=== PATIENT | male | born 1960 | race Caucasian/White ===

== ENCOUNTER → 2016-07-08 | Outpatient (CLI) | payer OTHER ==
[~2016-07-08] MED LIST: IBUP200T52 PO
--- NOTE | 2016-07-08 15:43 | DIAGNOSTIC IMAGING REPORT ---
RIGHT SHOULDER MRI HISTORY: Right shoulder pain. 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 COMPARISON STUDY: None. FINDINGS: AC joint: Moderate AC joint arthropathy demonstrated by marginal osteophytes, subchondral cystic change, joint space narrowing, joint fluid. Rotator cuff: The subscapularis and teres minor tendons are intact. There are small focal full-thickness tears at the distal supraspinatus tendon. No associated retraction. High-grade partial tear along the undersurface of the infraspinatus tendon with an interstitial component of the tear extending to the musculotendinous junction. Mild fatty atrophy of the supraspinatus muscle. Labrum: Diffuse abnormal configuration and signal within the labrum consistent with a circumferential tear. Biceps tendon: Focus of increased signal within the long head of the biceps tendon consistent with a tendinopathy. Bones: Mild subchondral edema and cystic change along the lateral humeral head. This is likely chronic. No fracture or dislocation. Cartilage: Mild cartilage thinning at the humeral head. Miscellaneous: No significant joint effusion. Trace fluid within the subacromial/subdeltoid bursa. IMPRESSION: 1. Small focal full-thickness tears at the distal supraspinatus tendon. No associated retraction. 2. High-grade partial tear involving the majority of the articular surface of the infraspinatus tendon with an interstitial component of the tear that extends to the musculotendinous junction. 3. Diffuse abnormal configuration and signal within the labrum consistent with a circumferential tear. 4. Mild biceps tendinopathy. 5. Additional chronic findings as described above. Electronically signed by: Anish Dawson M.D. 07/08/2016 3:41 PM Dictated Date/Time: 07/08/2016 3:33 PM
== END | disposition home or self-care (01) ==
LOC: C.MRI 14:06
PROVIDERS: ATTEND Internal Medicine
DX: M75.100 Unspecified rotator cuff tear or rupture of unspecified shoulder, not specified as traumatic (principal)

== ENCOUNTER → 2016-07-09 | Outpatient (CLI) | payer OTHER ==
[2016-07-09 11:21] LABS: ALT/SGPT 30 U/L (12-78); AST/SGOT 24 U/L (15-37); BLOOD UREA NITROGEN 30 mg/dl (7-18); BUN/CREATININE RATIO 24.8 (10-20); CALCIUM 8.7 mg/dl (8.5-10.1); CARBON DIOXIDE 26 mmol/L (21-32); CHLORIDE 106 mmol/L (98-107); CHOLESTEROL 197 mg/dl (0-200); GLUCOSE 86 mg/dl (70-99); POTASSIUM 3.9 mmol/L (3.5-5.1); SODIUM 142 mmol/L (136-145)
[2016-07-09 11:26] LABS: CHOLESTEROL/HDL RATIO 3.3; HDL CHOLESTEROL 60 mg/dl; LDL CHOLESTEROL CALCULATED 124 mg/dl; PROSTATE SPECIFIC ANTIGEN 0.791 ng/ml (0.000-4.000); TRIGLYCERIDES 63 mg/dl (0-150); VERY LOW DENSITY LIPOPROT CALC 13 mg/dl
== END | disposition home or self-care (01) ==
LOC: C.LABBC 07:45
PROVIDERS: ATTEND Internal Medicine
DX: Z12.5 Encounter for screening for malignant neoplasm of prostate (principal); Z13.220 Encounter for screening for lipoid disorders; Z13.1 Encounter for screening for diabetes mellitus; M75.100 Unspecified rotator cuff tear or rupture of unspecified shoulder, not specified as traumatic

== ENCOUNTER → 2017-06-09 | Outpatient (CLI) | payer OTHER ==
[~2017-06-09] MED LIST changes: +MELO15TA4 PO
[2017-06-09 13:09] LABS: BASO % 0.4 %; BASO ABS # 0.02 K/uL (0-0.2); EOS % 3.4 %; EOS ABS # 0.17 K/uL (0-0.5); HEMATOCRIT 44.4 % (42-52); HEMOGLOBIN 15.1 g/dL (14.0-18.0); IG# 0.02 K/uL (0.00-0.02); LYMPH % 30.4 %; LYMPH ABS # 1.53 K/uL (1.2-3.4); MEAN CORPUSCULAR HEMOGLOBIN 30.3 pg (25-34); MEAN PLATELET VOLUME 10.2 fL (7.4-10.4); MONO % 8.5 %; MONO ABS # 0.43 K/uL (0.11-0.59); NEUT % 56.9 %; NEUT ABS # 2.87 K/uL (1.4-6.5); PLATELET COUNT 199 K/uL (130-400); RED CELL DISTRIBUTION WIDTH CV 12.4 % (11.5-14.5); RED CELL DISTRIBUTION WIDTH SD 39.3 fL (36.4-46.3); WHITE BLOOD COUNT 5.04 K/uL (4.8-10.8)
[2017-06-09 13:36] LABS: BLOOD UREA NITROGEN 23 mg/dl (7-18); CALCIUM 9.4 mg/dl (8.5-10.1); CARBON DIOXIDE 28 mmol/L (21-32); CREATININE 0.98 mg/dl (0.60-1.40); GLUCOSE 96 mg/dl (70-99); SODIUM 138 mmol/L (136-145)
== END | disposition home or self-care (01) ==
LOC: C.CPL 12:38
PROVIDERS: ATTEND Orthopaedic Surgery
DX: M75.81 Other shoulder lesions, right shoulder (principal)

== ENCOUNTER → 2017-06-26 | Day surgery (SDC) | payer OTHER ==
[2017-06-10 09:56] VITALS: Ht 189.2 cm; Wt 77.3 kg
[~2017-06-26] VITALS: Ht 189.2 cm; Wt 77.3 kg
[~2017-06-26] MED LIST changes: +ATROPINE SULFATE 0.1 MG/ML 5ML SYR IV PRN; +BUPIVACAINE/EPINEPHRINE 0.25% 1:200,000 30 ML VIAL ONE; +CEFAZOLIN 2000MG IV PUSH 10 ML IV SCH; +DEXAMETHASONE SOD INJ 4 MG/ML VIAL ONE; +EpHEDrine SULFATE INJ 50 MG/ML AMP IV PRN; +EpINEphrine INJ 1MG/ML AMP 1 MG/ML AMP ONE; +FENTANYL CITRATE INJ 50 MCG/1 ML 2 ML VIAL IV PRN; +FENTANYL CITRATE INJ 50 MCG/1 ML 2 ML VIAL ONE; +KETO10TA PO; +KETOROLAC TROMETHAMINE 30 MG/ML VIAL IV. PRN; +LACTATED RINGER'S 1000ML 1,000 ML IV SCH; +LIDOCAINE HCL 2% 2 ML VIAL (20MG/ML) ONE; +MIDAZOLAM HCL 1 MG/ML 2ML VIAL ONE; +ONDANSETRON INJ 2 MG/ML 2 ML VIAL IV PRN; +ONDANSETRON INJ 2 MG/ML 2 ML VIAL ONE; +OXYC-57 PO; +OXYCODONE/ACETAMINOPHEN 5-325 TAB PO PRN; +PROPOFOL IV EMULSION 10 MG/ML 20 ML VIAL IV ONE; +ROPIVACAINE 0.5% 5 MG/ML 30 ML VIAL ONE; +SODIUM CHLORIDE 0.9% 1000ML 1,000 ML IV SCH
--- NOTE | 2017-06-26 11:11 | History & Physical Bridge - [place] ---
H&P Re-Evaluation Bridge Note: I have examined the patient, reviewed the History & Physical and in the interval since the performance of the History & Physical I have noted the following changes of clinical significance: No changes noted
--- NOTE | 2017-06-26 13:42 | [facility] Post Operative Brief Note ---
Immediate Operative Summary Operative Date Jun 26, 2017. Pre-Operative Diagnosis Right Shoulder Rotator Cuff Tear, Biceps Tendonitis Post-Operative Diagnosis Same Procedure(s) Performed Right Shoulder Arthroscopy, Medium Rotator Cuff Tear, Acromioplasty Surgeon Dr. Herrmann Manager Merchandising Surgeon(s) Karolina Camacho PA-C Estimated Blood Loss 5 ml Findings Consistent with Post-Op Diagnosis Specimens None Drains None Anesthesia Type General Regional Complication(s) none Disposition Disposition: Recovery Room / PACU
--- NOTE | 2017-06-26 13:56 | Discharge Instructions-SurgCtr ---
Discharge Instructions Date of Service Jun 26, 2017. Visit Reason for Visit: Right Shoulder Rotator Cuff Tendon Inflammation Discharge Discharge Diagnosis / Problem: SAME ABOVE Discharge Goals Goal(s): Decrease discomfort, Improve function Medications Stopped Medications Name(s): Advil and meloxicam stopped 06-18-17 Restart Stopped Medication(s): MAY RESTART ONCE YOU ARE COMPLETED WITH TORADOL TAKE TORADOL EVERY 8 HOURS UNTIL FINISHED Activity Recommendations Activity Limitations: as noted below Lifting Limitations: until after follow-up appointment Exercise/Sports Limitations: until after follow-up appointment Shower/Bathe: tomorrow Anesthesia . Post Anesthesia Instructions: If you have had General Anesthesia or IV Sedation: * Do not drive today. * Resume driving when surgeon permits. * Do not make important decisions or sign legal documents today. * Call surgeon for: 1. Temperature elevations greater than 101 degrees F. 2. Uncontrollable pain. 3. Excessive bleeding. 4. Persistent nausea and vomiting. 5. Medication intolerance (nausea, vomiting or rash). * For nausea and vomiting use only clear liquids such as: tea, soda, bouillon until nausea subsides, then gradually increase diet as tolerated. * If you have any concerns or questions, call your surgeon's office. If physician is unavailable and it is an emergency, call 911 or go to the nearest emergency room. . Instructions / Follow-Up Instructions / Follow-Up MEDICATIONS: * Resume previous medications unless instructed otherwise by your surgeon. * Always take pain medication on a full stomach or with food to avoid upset stomach. * Do not drink alcohol or drive while taking narcotics. * Ibuprofen or Tylenol may be taken if narcotic not needed. SPECIAL CARE INSTRUCTIONS: __ None _X_ Keep extremity elevated and iced x 48 hours; apply ice 20-30 minutes 8-10 times/day. May remove at night. __ Sling __24 hrs/day __ Remove at night _X_ Shoulder Immobilizer (MAY REMOVE AFTER 48 HOURS ONLY TO SHOWER AND FOR THERAPY) _X_ 24 hrs/day __ Remove at night _X_ Dressing __ Maintain until seen in office, may shower with plastic over site _X_ Remove dressings in 24-48 hours and then may shower _X_ Cover incisions with band-aids after showering __ Do not remove steri-strips Call physician if chills or temperature rises above 102 degrees or pain unrelieved by prescribed pain medications at . . Diet Recommendations Home Diet: no limitations Fluid Restriction: None Procedures Procedures Performed: Right Shoulder Arthroscopy, Medium Rotator Cuff Tear, Acromioplasty Pending Studies Studies pending at discharge: no Work Instructions Return To Work: after follow-up Lifting Limitations: NO LIFTING WITH RIGHT ARM Medical Emergencies . Who to Call and When: Medical Emergencies: If at any time you feel your situation is an emergency, please call 911 immediately. . Non-Emergent Contact Non-Emergency issues call your: Primary Care Provider Call Non-Emergent contact if: you have a fever, temperature is above 101.5 . . "Provider Documentation" section prepared by Connor Camacho. .
[2017-06-26 14:53] VITALS: TEMP 36.5
--- NOTE | 2017-06-26 15:06 | Anesthesia Progress Nt - [facility] ---
Anesthesia Post Op Note Date & Time Jun 26, 2017 at 15:06 Vital Signs Pain Intensity: 3 Vital Signs Past 12 Hours Date Time Temp Pulse Resp B/P (MAP) Pulse Ox O2 Delivery O2 Flow Rate FiO2 06/26/17 14:53 36.5 73 14 126/82 (97) 100 Room Air 06/26/17 14:42 75 7 06/26/17 14:42 75 7 100 06/26/17 14:41 144/84 06/26/17 14:37 77 15 06/26/17 14:37 77 15 100 06/26/17 14:36 141/85 06/26/17 14:32 75 13 100 06/26/17 14:32 75 13 06/26/17 14:31 148/87 06/26/17 14:30 36.5 74 16 148/87 97 Room Air 06/26/17 14:27 77 9 06/26/17 14:27 78 9 100 06/26/17 14:26 148/98 06/26/17 14:22 80 20 100 06/26/17 14:22 80 20 06/26/17 14:21 154/85 06/26/17 14:20 79 10 100 06/26/17 14:20 78 10 06/26/17 14:16 147/82 06/26/17 14:15 79 14 100 06/26/17 14:15 79 14 06/26/17 14:11 135/80 06/26/17 14:10 83 17 06/26/17 14:10 83 17 100 06/26/17 14:06 142/82 06/26/17 14:05 83 18 06/26/17 14:05 82 18 100 06/26/17 14:01 146/83 06/26/17 14:00 75 10 06/26/17 14:00 75 10 100 06/26/17 13:56 135/80 06/26/17 13:55 36.4 74 16 135/80 100 Diffusion Mask 6 06/26/17 12:22 68 4 100 06/26/17 12:22 69 06/26/17 12:20 125/80 06/26/17 12:17 72 14 100 06/26/17 12:17 72 06/26/17 12:16 70 06/26/17 12:16 68 14 132/77 100 06/26/17 12:11 64 5 128/72 100 06/26/17 12:11 66 06/26/17 12:06 63 0 100 06/26/17 12:06 63 06/26/17 12:05 123/77 06/26/17 12:02 66 06/26/17 12:02 67 100 06/26/17 12:01 120/78 06/26/17 11:57 71 06/26/17 11:57 72 0 100 06/26/17 11:56 77 45 138/78 100 06/26/17 11:56 76 06/26/17 11:52 128/80 06/26/17 11:51 76 06/26/17 11:51 78 0 98 06/26/17 11:46 64 0 99 06/26/17 11:46 63 06/26/17 11:41 62 06/26/17 11:41 61 0 98 06/26/17 11:36 62 0 99 06/26/17 11:36 65 06/26/17 11:31 62 0 99 06/26/17 11:31 62 06/26/17 11:26 74 0 98 06/26/17 11:26 71 06/26/17 11:21 69 0 06/26/17 09:42 36.8 64 18 140/83 (102) 98 Room Air Notes Mental Status: alert / awake / arousable, participated in evaluation Pt Amnestic to Procedure: Yes Nausea / Vomiting: adequately controlled Pain: adequately controlled Airway Patency, RR, SpO2: stable & adequate BP & HR: stable & adequate Hydration State: stable & adequate Anesthetic Complications: no major complications apparent
[2017-06-26 15:28] VITALS: BP 125/78; PULSE 68; O2SAT 100
--- NOTE | 2017-06-26 20:53 | OPERATIVE REPORT ---
DATE OF OPERATION: 06/26/2017 PREOPERATIVE DIAGNOSIS: Medium sized rotator cuff tear, biceps tendinopathy of the right shoulder. POSTOPERATIVE DIAGNOSIS: Same. PROCEDURE: Right shoulder diagnostic arthroscopy with limited debridement, acromioplasty, medium sized rotator cuff repair and arthroscopic biceps tenodesis. SURGEON: Allan Herrmann DO. AUTOMATIC SPREADER OPERATOR: Dalton Camacho PA-C, whose assistance was necessary for positioning the arm and helping with instrumentation and closure. ANESTHESIA: General with a right interscalene nerve block. COMPLICATIONS: None. CONDITION: Stable to PACU. 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 He has been having chronic right shoulder pain. MRI and clinical examination were diagnostic for rotator cuff tear and biceps tendinopathy. After failing conservative treatment, he elected to undergo arthroscopy. DESCRIPTION OF PROCEDURE: On 06/26/2017, he arrived at [facility] for the above procedure. He was seen in the preoperative holding area and the operative extremity was identified and signed. He was given a preoperative antibiotics and a right interscalene nerve block. He was taken back to the operating room, laid on the table in supine position and put under general anesthesia. He was then put into the beach chair position. The right shoulder was prepped and draped in sterile fashion. Time-out was done and the patient and operative extremity was properly identified. A scope was introduced in the posterior portal. Diagnostic arthroscopy showed no cartilage damage to the humeral head or the glenoid. There was a little fraying of the anterior labrum. There was significant fraying of the long head of the biceps tendon. There was a tear of the entire supraspinatus. The infraspinatus, teres minor and subscapularis were all checked and intact. An anterior portal was made. A shaver was used to do a limited debridement of the intraarticular structures and the biceps tendon was arthroscopically tenotomized for later tenodesis. The scope was then put into the subacromial space. A lateral portal was made. A shaver was used to do a complete subacromial and subdeltoid bursectomy. An ablator was used to tease the coracoacromial ligament off the undersurface of the acromion and a 5-0 alec was used to complete acromioplasty of a very large Bigliani type 3 acromion. A shaver was used to remove any excess debris. Attention was turned to the rotator cuff. An additional anterolateral portal was made. Nguyen cannulas were placed in each of the lateral portals. The greater tuberosity was prepared with a ring curette and microfracture. The rotator cuff was then fixed with an Arthrex SpeedBridge configuration using BioComposite SwiveLock suture anchors and fiber tapes. This gave a nice knotless SpeedBridge repair. Multiple pictures were taken. The long head of the biceps tendon was tagged with an Arthrex FiberLink and then incorporated into the anterior medial anchors to complete an arthroscopic biceps tenodesis. The scope was then placed back into the glenohumeral joint and the articular margin of the rotator cuff had been restored. Pictures were taken. Arthroscopic instruments were removed from the shoulder. Portal sites were closed with 3-0 nylon. He was then placed in a soft dressing and abduction arm sling. He was then extubated, transferred to a litter and taken to the postanesthesia care unit in stable condition. He tolerated the procedure well. I attest to the content of the Intraoperative Record and any orders documented therein. Any exception s are noted below.
== END | disposition home or self-care (01) ==
LOC: X.SURG 09:17
PROVIDERS: ATTEND Orthopaedic Surgery
DX: M75.101 Unspecified rotator cuff tear or rupture of right shoulder, not specified as traumatic (principal); M75.22 Bicipital tendinitis, left shoulder; Z98.890 Other specified postprocedural states; Z90.89 Acquired absence of other organs